=== PATIENT | female | born 1960 | race Caucasian/White ===

== ENCOUNTER 2020-01-26 07:26 | Outpatient (CLI) | payer OTHER ==
[2020-01-26 16:15] LABS: #Basophils 0.1 thou/uL (0.0-0.2); #Eosinphils 0.2 thou/uL (0.0-0.7); #Lymphocytes 2.5 thou/uL (1.20-3.40); #Monocytes 0.6 thou/uL (0.11-0.59); #Neutrophils 2.1 thou/uL (1.40-6.50); %Basophils 0.9 % (0.0-1.0); %Eosinophils 4.2 % (0.0-10.0); %Lymphocytes 45.7 % (21.0-51.0); %Monocytes 10.3 % (0.0-10.0); %Neutrophils 38.9 % (42.0-75.0); Hemoglobin 13.3 g/dL (12.0-16.0); Mean Corpuscular HGB CONC 33.5 g/dL (32.0-36.0); Mean Corpuscular Hemoglobin 31.5 pg (27.0-31.0); Mean Corpuscular Volume 94.1 fL (78.0-98.0); Mean Platelet Volume 9.9 fL (7.4-10.4); Platelet Count 216 thou/uL (130-400); Red Blood Cell (RBC) Count 4.23 mill/uL (4.20-5.40); White Blood Cell (WBC) Count 5.4 thou/uL (4.8-10.8)
--- NOTE | 2020-01-26 16:26 | EKG ---
Test Reason : PREOP Blood Pressure : / mmHG Vent. Rate : 055 BPM Atrial Rate : 055 BPM P-R Int : 162 ms QRS Dur : 096 ms QT Int : 420 ms P-R-T Axes : 051 -23 002 degrees QTc Int : 401 ms Sinus bradycardia Otherwise normal ECG Confirmed by PITO JACKSON ([id number]) on 01/26/2020 4:26:05 PM Referred By: Vinod ZAPATA Confirmed By:PITO JACKSON
[2020-01-26 16:31] LABS: Bacteria/HPF None Seen HPF (None Seen); Bilirubin Negative (Negative); Blood, Urine Negative (Negative); Clarity Clear (Clear); Glucose, Urine (Dipstick) Normal (Negative); INR-International Normal Ratio 0.9; Ketone, Urine Trace mg/dL (Negative); Leukocyte 25 Leu/uL (Negative); Mucous/LPF 2+ LPF (<2+); Nitrite Negative (Negative); Protein, Urine (Dipstick) 20 mg/dL (Neg-Trace); Prothrombin Time 12.6 sec (12.0-14.7); Specific Gravity, Urine 1.028 (1.002-1.036); Urobilinogen Normal mg/dL (Less than 2); WBC/HPF 0-3 HPF (0-3); pH, Urine 5.5 (5.0-9.0)
[2020-01-26 16:42] LABS: Anion Gap 15 mmol/L (10-20); BUN (Urea Nitrogen) 13 mg/dL (9.8-20.1); Calc. Creatinine Clearance 0 mL/min (70-130); Carbon Dioxide 26 mmol/L (22-29); Chloride 104 mmol/L (98-107); Estimated GFR-MDRD 73; Potassium 4.7 mmol/L (3.5-5.1); Sodium 140 mmol/L (136-145)
[2020-01-26 16:43] LABS: Glucose 94 mg/dL (70-105)
[2020-01-27 14:22] LABS: SARS-CoV-2 MS2 Positive; SARS-CoV-2 N Gene Negative; SARS-CoV-2 S Gene Negative; SARS-CoV-2 by NAA Not Detected (NotDetected); SARS-CoV-2 orf1ab Negative
== END 2020-01-26 07:27 | disposition home or self-care (01) ==
LOC: LABBT 07:26
PROVIDERS: ATTEND Orthopaedic Surgery
DX: Z01.818 Encounter for other preprocedural examination (principal); Z11.59 Encounter for screening for other viral diseases; M17.11 Unilateral primary osteoarthritis, right knee
CPT/HCPCS: 80048; 81001; 85025; 85610; 87635; 93005; 93010; U0003

== ENCOUNTER 2020-09-06 08:30 | Inpatient (IN) | payer BC ==
[2020-09-10 10:15] VITALS: BMI 32.8
[2020-09-11] MEDS ORDERED: Fentanyl 100 MCG/2 ML VIAL ONE ×3 (05:48→10:01)
[2020-09-11] MEDS ORDERED: Sodium Chloride 0.9% 100 ML ONE (06:23)
[2020-09-11] MEDS ORDERED: Tranexamic Acid 1,000 MG/10 ML VIAL ONE (06:23)
[2020-09-11] MEDS ORDERED: Vancomycin 1.5 GRAM/300 ML BAG ONE (06:23)
[2020-09-11] MEDS ORDERED: Midazolam HCl 2 mg/2 ml Vial ONE (06:29)
[2020-09-11] MEDS ORDERED: Lidocaine 1% (PF) 30 ML VIAL ONE (06:30)
[2020-09-11] MEDS ORDERED: HYDROcodone/Acetaminophen 10/325 mg Tablet PO PRN ×4 (06:57→07:45)
[2020-09-11] MEDS ORDERED: traMADol HCl 50 MG TAB PO PRN ×3 (06:57→07:45)
[2020-09-11] MEDS ORDERED: Promethazine HCl 25 MG/ML VIAL IM PRN ×3 (06:57→09:11)
[2020-09-11] MEDS ORDERED: Fentanyl 100 MCG/2 ML VIAL SLOW IVP PRN ×3 (06:57→07:32)
[2020-09-11] MEDS ORDERED: Ondansetron PF 4 MG/2 ML Vial IVP PRN ×2 (06:57→07:45)
[2020-09-11] MEDS ORDERED: Zolpidem Tartrate 5 MG TAB PO PRN ×2 (06:57→07:45)
[2020-09-11] MEDS ORDERED: diphenhydrAMINE 25 MG CAP PO PRN (06:57)
[2020-09-11] MEDS ORDERED: Acetaminophen 325 MG TAB PO PRN (06:57)
[2020-09-11] MEDS ORDERED: Dexamethasone 20 MG/5 ML VIAL ONE (07:08)
[2020-09-11] MEDS ORDERED: Ketorolac Tromethamine 30 MG/ML VIAL ONE (07:08)
[2020-09-11] MEDS ORDERED: Ropivacaine 2% HCl/PF (20 MG/10 ML VIAL) ONE (07:08)
[2020-09-11] MEDS ORDERED: Bupivacaine HCl 0.5%/Epinephrine 1:200,000/PF 30 ml Vial ONE (07:08)
[2020-09-11] MEDS ORDERED: Ondansetron PF 4 MG/2 ML Vial ONE (07:08)
[2020-09-11] MEDS ORDERED: PROPOFOL 200 MG/20 ML VIAL ONE (07:08)
[2020-09-11] MEDS ORDERED: Ropivacaine HCl/PF 250 ML in Premix Bag 1 BAG NERVE BLCK SCH (07:45)
[2020-09-11] MEDS ORDERED: Ondansetron HCl/PF 4 MG/2 ML Vial IVP PRN (09:11)
[2020-09-11] MEDS ORDERED: Promethazine HCl 25 MG/ML VIAL SLOW IVP PRN (09:11)
[2020-09-11] MEDS: Ketorolac Tromethamine 30 MG/ML VIAL IVP SCH ×2 (13:02→17:49)
[2020-09-11] MEDS: Sodium Chloride 0.9% 1,000 ML IV SCH ×2 (13:02→14:29)
[2020-09-11] MEDS: Aspirin 81 mg Enteric Coated Tablet PO SCH ×2 (13:02→20:15)
[2020-09-11] MEDS: CEFAZOLIN 2 GM in Premix Bag 1 BAG IVPB SCH ×2 (14:25→22:08)
[2020-09-12] MEDS: Ketorolac Tromethamine 30 MG/ML VIAL IVP SCH ×4 (00:03→17:32)
[2020-09-12] MEDS: Sodium Chloride 0.9% 1,000 ML IV SCH ×3 (01:55→21:11)
[2020-09-12 05:31] LABS: Hemoglobin 10.9 g/dL (12.0-16.0); Mean Corpuscular HGB CONC 33.6 g/dL (32.0-36.0); Mean Corpuscular Hemoglobin 31.5 pg (27.0-31.0); Mean Corpuscular Volume 93.7 fL (78.0-98.0); Mean Platelet Volume 9.2 fL (7.4-10.4); Platelet Count 181 thou/uL (130-400); RBC Distribution Width 11.5 % (11.5-14.5); Red Blood Cell (RBC) Count 3.47 mill/uL (4.20-5.40); White Blood Cell (WBC) Count 12.3 thou/uL (4.8-10.8)
[2020-09-12] MEDS: Senokot S 8.6-50 MG TAB PO SCH ×2 (08:11→21:11)
[2020-09-12] MEDS: Aspirin 81 mg Enteric Coated Tablet PO SCH ×2 (08:11→21:11)
[2020-09-12] MEDS: Ferrous Gluconate 324 MG TAB PO SCH ×2 (08:12→21:11)
[2020-09-12] MEDS: Multivitamin W/ Minerals 1 TAB PO SCH (08:14)
[2020-09-13] MEDS: Ketorolac Tromethamine 30 MG/ML VIAL IVP SCH ×2 (00:28→06:04)
[2020-09-13] MEDS: Multivitamin W/ Minerals 1 TAB PO SCH (08:03)
[2020-09-13] MEDS: Aspirin 81 mg Enteric Coated Tablet PO SCH (08:03)
[2020-09-13] MEDS: Ferrous Gluconate 324 MG TAB PO SCH (08:03)
[2020-09-13] MEDS: Senokot S 8.6-50 MG TAB PO SCH (08:03)
[2020-09-13] MEDS ORDERED: Ropivacaine 0.2% 550 ML 550 ML NERVE BLCK SCH (11:15)
[2020-09-13] MEDS: Sodium Chloride 0.9% 1,000 ML IV SCH (11:41)
[2020-09-13 12:34] VITALS: BP 118/75; TEMP 98.3
[2020-09-13] MEDS ORDERED: Dexamethasone 4 mg/ml Vial ONE (13:19)
[2020-09-13] MEDS ORDERED: Metoclopramide HCl 10 MG TAB PO SCH (13:45)
[2020-09-13] MEDS ORDERED: Dexamethasone 4 mg/ml Vial SLOW IVP SCH (13:45)
== END 2020-09-13 14:16 | disposition home or self-care (01) | DRG 470 ==
LOC: SURG A 09-11 05:44 → EDSTATUS 09-11 13:15 → SURG A 09-11 13:16
PROVIDERS: ADMIT Orthopaedic Surgery; ATTEND Orthopaedic Surgery
PROC: 0SRD0J9 Replacement of Left Knee Joint with Synthetic Substitute, Cemented, Open Approach (ICD-10-PCS; principal; 2020-09-11)
DX: M17.12 Unilateral primary osteoarthritis, left knee (principal); M25.462 Effusion, left knee; M21.162 Varus deformity, not elsewhere classified, left knee; M67.262 Synovial hypertrophy, not elsewhere classified, left lower leg; Z96.651 Presence of right artificial knee joint; Z90.710 Acquired absence of both cervix and uterus; Z90.89 Acquired absence of other organs
CPT/HCPCS: 36415; 85027; A4306; C1713; C1776; J0690; J1100; J1885; J2001; J2250; J2405; J2704; J2795; J3010; J3370; J3490

== ENCOUNTER 2020-09-06 08:36 | Outpatient (CLI) | payer BC, OTHER, SELFPAY | END 2020-09-06 08:37 | disposition home or self-care (01) | LOC: LABBT 08:36 | PROVIDERS: ATTEND Orthopaedic Surgery | DX: Z01.818 Encounter for other preprocedural examination (principal); M17.12 Unilateral primary osteoarthritis, left knee | CPT/HCPCS: 80048; 81001; 85025; 85610; 87081; 93005; 93010 ==